=== PATIENT | female | born 1960 | race American Indian/Alaskan Native ===

== ENCOUNTER 2020-07-11 12:12 | Emergency (ER) | payer SELFPAY ==
[2020-07-11 12:43] LABS: Hematocrit 47.5 % (30.3-42.9); Hemoglobin 15.9 gm/dl (10.1-14.3); Mean Corpuscular HGB Conc 33 % (30-34); Mean Corpuscular Volume 96 fl (79-97); Platelet Count 208 K/mm3 (140-440); Red Blood Count 4.93 M/mm3 (3.65-5.03); Red Cell Distribution Width 14.8 % (13.2-15.2)
[2020-07-11] MEDS ORDERED: cloNIDine 0.1 MG TAB PO ONE (13:00)
[2020-07-11 13:05] LABS: Alanine Aminotransferase 30 units/L (7-56); Albumin 4.1 g/dL (3.9-5); BUN/Creatinine Ratio 15; Blood Urea Nitrogen 12 mg/dL (7-17); Calcium 9.2 mg/dL (8.4-10.2); Hemolysis Index 8
[2020-07-11] MEDS ORDERED: SODIUM CHLORIDE 0.9% 1000 ML 2,000 ML ONE (13:49)
--- NOTE | 2020-07-11 13:59 | Emergency Department Report ---
ED Eye Problem HPI - General Chief complaint: High BP Stated complaint: RT EYE IRRITATION Time Seen by Provider: 07/11/20 12:33 Source: patient Mode of arrival: Ambulatory Limitations: No Limitations - History of Present Illness Initial comments: 59-year-old female with past medical history of hypertension diagnosed during previous ER visit in 2013 per patient has not followed with a PMD or been placed on outpatient meds since presents to the hospital complaining of right eye visual disturbances for the past 1 to 2 weeks is noted to have elevated blood pressure in triage. Patient states the right eye appears to have a black line that does not move that obstructs her view. When she looks at light this line appears red like blood. She denies trauma to the eye, photophobia, pain to the eye, drainage, or fever. She also denies symptoms of hypertensive emergency including headache, chest pain, or shortness of breath. Patient states she is nearsighted and supposed to wear glasses but she does not. - Related Data Allergies Allergy/AdvReac Type Severity Reaction Status Date / Time No Known Allergies Allergy Unverified 07/11/20 12:24 ED Review of Systems ROS: Stated complaint: RT EYE IRRITATION Other details as noted in HPI Comment: All other systems reviewed and negative ED Past Medical Hx - Past Medical History Previous Medical History?: No - Surgical History Past Surgical History?: No - Social History Smoking Status: Current Every Day Smoker Substance Use Type: Alcohol ED Physical Exam - General Limitations: No Limitations - Other Other exam information: General: No acute distress Head: Atraumatic Eyes: normal appearance, pupils are equal and reactive to light, visual bhatti intact (contray to RN note), no gross medial lateral visual field deficit. Patient able to identify my fingers about 1 to 2 feet from her right eye but states that her vision is blurry. However, on visual acuity exam of right eye she is unable to identify any of the letters, left eye 20/20 with bilateral eye vision reported 20/15. 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 ENT: Moist mucous membranes Neck: Normal appearance, no midline tenderness Chest: Clear to auscultation bilaterally CV: Regular rate and rhythm Abdomen: Soft, normal bowel sounds, nontender, nondistended, no rebound or guarding Back: Normal inspection Extremity: Normal inspection, full range of motion Neuro: Alert O x 3, no facial asymmetry, speech clear, no gross motor sensory deficit Psych: Appropriate behavior Skin: No rash ED Course Vital Signs 07/11/20 07/11/20 07/11/20 12:24 12:48 13:00 Temperature 98.6 F Pulse Rate 99 H 101 H Respiratory 18 16 Rate Blood Pressure 209/115 190/109 Blood Pressure [Right] O2 Sat by Pulse 96 98 99 Oximetry 07/11/20 07/11/20 07/11/20 13:13 13:35 13:45 Temperature 98.1 F Pulse Rate 69 93 H Respiratory 20 24 Rate Blood Pressure 190/109 191/102 Blood Pressure 210/109 [Right] O2 Sat by Pulse 100 96 97 Oximetry 07/11/20 14:01 Temperature Pulse Rate 94 H Respiratory 21 Rate Blood Pressure 184/104 Blood Pressure [Right] O2 Sat by Pulse 97 Oximetry - Reevaluation(s) Reevaluation #1: 07/11/20 14:52 Minor decrease in blood pressure after clonidine 0.1 mg. EMS has arrived to take patient to [facility]. IV placed and labetalol 10 mg IV administered prior to transport. Case discussed with EMS who will continue to monitor blood pressure in route to [facility]. - Consultations Consultation #1: 07/11/20 14:06 Dr [place]ar[place] automotive consultant at [facility] accepted pt to [facility] for ED ophthalmology evaluation ED Medical Decision Making - Lab Data Result diagrams: 07/11/20 12:30 07/11/20 12:30 Lab Results 07/11/20 07/11/20 07/11/20 Range/Units 12:30 12:30 12:30 WBC 5.6 (4.5-11.0) K/mm3 RBC 4.93 (3.65-5.03) M/mm3 Hgb 15.9 H (10.1-14.3) gm/dl Hct 47.5 H (30.3-42.9) % MCV 96 (79-97) fl MCH 32 (28-32) pg MCHC 33 (30-34) % RDW 14.8 (13.2-15.2) % Plt Count 208 (140-440) K/mm3 Sodium 139 (137-145) mmol/L Potassium 4.2 (3.6-5.0) mmol/L Chloride 104.4 (98-107) mmol/L Carbon Dioxide 23 (22-30) mmol/L Anion Gap 16 mmol/L BUN 12 (7-17) mg/dL Creatinine 0.8 (0.6-1.2) mg/dL Estimated GFR > 60 ml/min BUN/Creatinine Ratio 15 % Glucose 102 H (65-100) mg/dL Calcium 9.2 (8.4-10.2) mg/dL Total Bilirubin 0.30 (0.1-1.2) mg/dL AST 28 (5-40) units/L ALT 30 (7-56) units/L Alkaline Phosphatase 141 H (35-129) units/L Troponin T < 0.010 (0.00-0.029) ng/mL Total Protein 7.6 (6.3-8.2) g/dL Albumin 4.1 (3.9-5) g/dL Albumin/Globulin Ratio 1.2 % Critical Care Time: No Critical care attestation.: If time is entered above; I have spent that time in minutes in the direct care of this critically ill patient, excluding procedure time. ED Disposition Clinical Impression: Uncontrolled hypertension, Noncompliance with medication regimen, Visual disturbance Disposition: DC/TX-70 ANOTHER TYPE HLTHCARE Is pt being admited?: No Does the pt Need Aspirin: No Condition: Stable Instructions: Hypertension (ED) Referrals: PRIMARY CARE, [Primary Care Provider] - 3-5 Days Time of Disposition: 14:53 ([facility])
[2020-07-11 15:01] VITALS: BP 221/109
== END 2020-07-11 15:01 | disposition other institution (70) ==
LOC: ED 12:12
DX: H53.9 Unspecified visual disturbance (principal); I10 Essential (primary) hypertension; Z91.14 Patient's other noncompliance with medication regimen; F17.200 Nicotine dependence, unspecified, uncomplicated
CPT/HCPCS: 36415; 80053; 84484; 85027; 96374; 99283; J7030